=== PATIENT | female | born 1975 | race African-American/Black ===

== ENCOUNTER 2021-01-31 14:17 | Outpatient (CLI) | payer BC, SELFPAY ==
--- NOTE | ~2021-01-31 | XR_ITS ---
XR shoulder RT min 2V 01/31/2021 14:51 INDICATION: Right shoulder pain PROCEDURE: 4 views right shoulder COMPARISON: No prior studies for comparison. FINDINGS: Fracture, dislocation or subluxation is not identified. The soft tissues appear within norm al limits. No foreign bodies are identified. IMPRESSION: 1: NO ACUTE BONE OR JOINT ABNORMALITY IDENTIFIED. Reviewed, dictated and finalized at location B.
== END 2021-01-31 14:18 | disposition home or self-care (01) ==
LOC: ANHIMG 14:31
DX: M54.2 Cervicalgia (principal)
CPT/HCPCS: 73030